=== PATIENT | male | born 1965 | race Hispanic/Latino ===

== ENCOUNTER 2024-11-23 12:48 | Inpatient (IN) | payer BC, OTHER ==
[~2024-11-23] VITALS: Ht 180.3 cm; Wt 106.6 kg
[2024-11-23 13:01] VITALS: TEMP 97.3
[2024-11-23 14:18] LABS: BILIRUBIN,URINE MODERATE (NEGATIVE); CLARITY,URINE TURBID (CLEAR); COLOR,URINE BROWN (YELLOW); GLUCOSE, URINE NEGATIVE (NEGATIVE); KETONES,URINE TRACE (NEGATIVE); LEUKOCYTE ESTERASE ,URINE LARGE (NEGATIVE); NITRITE,URINE POSITIVE (NEGATIVE); PH,URINE 5.5 (5 - 7); PROTEIN,URINE DIPSTICK >=300 (NEGATIVE); URINE UROBILINOGEN 0.2 mg/dL (0.2 - 1)
[2024-11-23 14:32] LABS: BACTERIA,URINE MANY /HPF; EPITHELIAL CELLS,URINE RARE /LPF; WBC,URINE (MAN) >50 /HPF (0-5)
[2024-11-23] MEDS: ONDANSETRON HCL INJ 2MG/ML 2ML 2 MG/ML VIAL IV STA (14:44)
[2024-11-23] MEDS: SODIUM CHLORIDE 0.9% 1000ML 1,000 ML IV ONE ×2 (14:44)
[2024-11-23 14:54] VITALS: PULSE 76; RESP 18
[2024-11-23 14:56] LABS: BASOPHILS # (AUTO) 0.1 (0.0-0.1); BASOPHILS % 0.4 % (0.0-1.0); EOSINOPHILS # (AUTO) 0.1 (0.0-0.4); EOSINOPHILS % 0.6 % (0.0-6.0); HEMATOCRIT 44.6 % (38.2-49.6); HEMOGLOBIN 14.1 g/dL (14.0-18.0); LYMPHOCYTES # (AUTO) 0.5 (1.0-3.2); LYMPHOCYTES % 2.5 % (18.0-39.1); MEAN CORPUSCULAR HEMOGLOBIN 28.8 pg (28-32); MEAN CORPUSCULAR HGB CONC 31.6 g/dL (31-35); MEAN CORPUSCULAR VOLUME 91.2 fL (81-99); NEUTROPHILS # (AUTO) 16.7 (2.1-6.9); NEUTROPHILS % 85.5 % (38.7-80.0); PLATELET COUNT 187 x10e3/uL (140-360); RED BLOOD COUNT 4.89 x10e6/uL (4.3-5.7); RED CELL DISTRIBUTION WIDTH 14.6 % (11.7-14.4); WHITE BLOOD COUNT 19.45 x10e3/uL (4.8-10.8)
[2024-11-23 15:15] LABS: INFLUENZA A AG NEGATIVE (NEGATIVE)
[2024-11-23 15:16] LABS: CORONAVIRUS COVID-19 AG NEGATIVE (NEGATIVE); INFLUENZA B AG NEGATIVE (NEGATIVE)
[2024-11-23 15:23] LABS: ALBUMIN 3.3 g/dL (3.5-5.0); ALBUMIN/GLOBULIN RATIO 0.7 (0.8-2.0); ANION GAP 18.8 mmol/L (8-16); BILIRUBIN,TOTAL 0.7 mg/dL (0.2-1.2); CALCIUM 10.1 mg/dL (8.4-10.2); CREATININE, SERUM 2.4 mg/dL (0.72-1.25); POTASSIUM 3.8 mmol/L (3.5-5.1); TOTAL PROTEIN 7.9 g/dL (6.5-8.1)
[2024-11-23] MEDS ORDERED: SODIUM CHLORIDE FLUSH 10 ML SYR INJ PRN (15:45)
[2024-11-23] MEDS ORDERED: ONDANSETRON HCL INJ 2MG/ML 2ML 2 MG/ML VIAL IV PRN (15:45)
[2024-11-23] MEDS ORDERED: HYDRALAZINE HCL 20 MG/ML VIAL IV PRN (16:15)
[2024-11-23] MEDS ORDERED: ALBUTEROL/IPRATROPIUM 3 ML NEB NEB PRN (16:15)
[2024-11-23] MEDS ORDERED: POTASSIUM CHLORIDE 20 MEQ TAB CR PO PRN (16:15)
[2024-11-23] MEDS ORDERED: DIPHENHYDRAMINE HCL 25 MG CAP PO PRN (16:15)
[2024-11-23] MEDS ORDERED: DOCUSATE SODIUM 100 MG CAP PO PRN (16:15)
[2024-11-23] MEDS ORDERED: SIMETHICONE 80 MG CHEW PO PRN (16:15)
[2024-11-23] MEDS ORDERED: DEXTROSE 50% SYRINGE 50 ML IV PRN (16:15)
[2024-11-23] MEDS ORDERED: LIDOCAINE 4% PATCH TP PRN (16:15)
[2024-11-23 17:59] VITALS: BP 115/80; PULSE 79; RESP 18; TEMP 98.2; O2SAT 100
[2024-11-23] MEDS: ACETAMINOPHEN 325 MG TAB PO PRN (18:04)
[2024-11-23 20:00] VITALS: BP 107/72; PULSE 85; RESP 18; TEMP 98.5; O2SAT 98
[2024-11-23] MEDS: SUMATRIPTAN SUCCINATE 6 MG/0.5 ML VIAL SC ONE (20:49)
[2024-11-23] MEDS ORDERED: MELATONIN 5 MG TABLET PO PRN (21:00)
[2024-11-23] MEDS: MEROPENEM 1 GM in SODIUM CHLORIDE 0.9% 100 ML IV SCH (21:09)
[2024-11-23] MEDS: HYDROCODONE/APAP 5MG-325MG TAB PO PRN (21:10)
[2024-11-23] MEDS: TAMSULOSIN HCL 0.4 MG CAP PO SCH (21:10)
[2024-11-23] MEDS: SODIUM CHLORIDE 0.9% 1000ML 1,000 ML IV SCH (23:23)
[2024-11-24] VITALS (9 sets, daily range): BP systolic 116–165; BP diastolic 67–99; PULSE 88–99; RESP 18–22; TEMP 97.9–101.7; O2SAT 92–98
[2024-11-24 06:46] LABS: BASOPHILS # (AUTO) 0.1 (0.0-0.1); BASOPHILS % 0.5 % (0.0-1.0); EOSINOPHILS # (AUTO) 0.1 (0.0-0.4); EOSINOPHILS % 0.5 % (0.0-6.0); HEMATOCRIT 36.1 % (38.2-49.6); HEMOGLOBIN 12.5 g/dL (14.0-18.0); LYMPHOCYTES # (AUTO) 0.7 (1.0-3.2); LYMPHOCYTES % 5.3 % (18.0-39.1); MEAN CORPUSCULAR HEMOGLOBIN 29.6 pg (28-32); MEAN CORPUSCULAR HGB CONC 34.6 g/dL (31-35); MEAN CORPUSCULAR VOLUME 85.3 fL (81-99); MONOCYTES # (AUTO) 0.7 (0.2-0.8); MONOCYTES % 5.4 % (4.4-11.3); NEUTROPHILS # (AUTO) 10.9 (2.1-6.9); NEUTROPHILS % 83.7 % (38.7-80.0); PLATELET COUNT 186 x10e3/uL (140-360); RED BLOOD COUNT 4.23 x10e6/uL (4.3-5.7); RED CELL DISTRIBUTION WIDTH 14.8 % (11.7-14.4); WHITE BLOOD COUNT 13.03 x10e3/uL (4.8-10.8)
[2024-11-24 07:22] LABS: ALBUMIN 2.7 g/dL (3.5-5.0); ALBUMIN/GLOBULIN RATIO 0.7 (0.8-2.0); ANION GAP 16.5 mmol/L (8-16); BILIRUBIN,TOTAL 0.5 mg/dL (0.2-1.2); CALCIUM 9.1 mg/dL (8.4-10.2); CREATININE, SERUM 1.08 mg/dL (0.72-1.25); POTASSIUM 3.5 mmol/L (3.5-5.1); TOTAL PROTEIN 6.7 g/dL (6.5-8.1)
[2024-11-24] MEDS: PANTOPRAZOLE SOD 40 MG TABEC PO SCH (09:47)
[2024-11-24] MEDS: SUMATRIPTAN SUCCINATE 6 MG/0.5 ML VIAL SC ONE (15:51)
[2024-11-24] MEDS: BENZONATATE 100 MG CAP PO PRN (16:04)
[2024-11-24] MEDS: PHENAZOPYRIDINE HCL 100 MG TAB PO SCH (16:15)
[2024-11-24] MEDS: SODIUM BICARBONATE 650 MG TAB PO SCH (16:15)
[2024-11-24] MEDS: KETOROLAC TROMETHAMINE 30 MG/ML VIAL IV SCH (17:08)
[2024-11-24] MEDS: ACETAMIN/BUTALBITAL/CAFFEINE TAB PO PRN (20:07)
[2024-11-25] VITALS (10 sets, daily range): BP systolic 110–139; BP diastolic 71–98; PULSE 69–98; RESP 18–22; TEMP 97.4–99.3; O2SAT 92–97
[2024-11-25] MEDS: Morphine 2mg Syringe 2 MG/ML SYR IV PRN (05:03)
[2024-11-25 05:19] LABS: BASOPHILS % 0.3 % (0.0-1.0); EOSINOPHILS # (AUTO) 0.1 (0.0-0.4); EOSINOPHILS % 0.6 % (0.0-6.0); HEMATOCRIT 36.4 % (38.2-49.6); HEMOGLOBIN 11.8 g/dL (14.0-18.0); LYMPHOCYTES # (AUTO) 0.8 (1.0-3.2); LYMPHOCYTES % 9.1 % (18.0-39.1); MEAN CORPUSCULAR HEMOGLOBIN 28.9 pg (28-32); MEAN CORPUSCULAR HGB CONC 32.4 g/dL (31-35); MONOCYTES # (AUTO) 0.6 (0.2-0.8); MONOCYTES % 6.6 % (4.4-11.3); NEUTROPHILS # (AUTO) 7.4 (2.1-6.9); NEUTROPHILS % 81.3 % (38.7-80.0); PLATELET COUNT 168 x10e3/uL (140-360); RED BLOOD COUNT 4.09 x10e6/uL (4.3-5.7); RED CELL DISTRIBUTION WIDTH 14.7 % (11.7-14.4); WHITE BLOOD COUNT 9.08 x10e3/uL (4.8-10.8)
[2024-11-25 05:44] LABS: ANION GAP 15.3 mmol/L (8-16); CALCIUM 8.7 mg/dL (8.4-10.2); CREATININE, SERUM 0.83 mg/dL (0.72-1.25)
[2024-11-25 06:02] LABS: POTASSIUM 3.3 mmol/L (3.5-5.1)
[2024-11-25] MEDS: METHYLPREDNISOLONE SOD SUCC 125 MG/2ML VIAL IV ONE (06:07)
[2024-11-25 06:24] LABS: THYROID STIMULATING HORMONE 0.824 uIU/mL (0.350-4.940)
[2024-11-25 06:50] LABS: MAGNESIUM 1.7 MG/DL (1.3-2.1)
[2024-11-25] MEDS ORDERED: PANTOPRAZOLE SOD 40 MG TABEC PO SCH (07:30)
[2024-11-25] MEDS: POTASSIUM CHLORIDE 20 MEQ TAB CR PO ONE (15:00)
[2024-11-26 00:05] VITALS: BP 141/93; PULSE 74; RESP 21; TEMP 98.1; O2SAT 94
[2024-11-26 04:00] VITALS: BP 150/105; PULSE 77; RESP 22; TEMP 97.5; O2SAT 98
[2024-11-26 08:00] VITALS: BP 109/74; PULSE 68; RESP 20; TEMP 97.9; O2SAT 96
[2024-11-26 08:10] VITALS: PULSE 64; RESP 18; O2SAT 94
[2024-11-26 09:00] VITALS: BP 109/74; PULSE 64; RESP 18; TEMP 97.9; O2SAT 94
[2024-11-26 11:40] VITALS: BP 129/92; PULSE 71; RESP 21; TEMP 97.8; O2SAT 98
[2024-11-26 15:23] LABS: ANION GAP 16.7 mmol/L (8-16); CALCIUM 8.9 mg/dL (8.4-10.2); CREATININE, SERUM 0.84 mg/dL (0.72-1.25); POTASSIUM 3.7 mmol/L (3.5-5.1)
[2024-11-26] MEDS ORDERED: ONDANSETRON HCL 4 MG ORAL DISINTEGRATING TAB PO PRN (16:00)
== END 2024-11-26 16:45 | disposition home or self-care (01) | DRG 872 ==
LOC: EDBD 13:23 → ER 13:23 → ERHOLD 15:53 → UNDOADMOB 15:53 → MED/SURG2 17:05
PROVIDERS: ADMIT Internal Medicine; ATTEND Internal Medicine
PROC: 3E0333Z Introduction of Anti-inflammatory into Peripheral Vein, Percutaneous Approach (ICD-10-PCS; principal; 2024-11-23)
DX: A41.51 Sepsis due to Escherichia coli [E. coli] (principal); E87.20 Acidosis, unspecified; N12 Tubulo-interstitial nephritis, not specified as acute or chronic; N17.9 Acute kidney failure, unspecified; E87.1 Hypo-osmolality and hyponatremia; Z16.12 Extended spectrum beta lactamase (ESBL) resistance; N40.1 Benign prostatic hyperplasia with lower urinary tract symptoms; N41.3 Prostatocystitis; R35.0 Frequency of micturition; E86.0 Dehydration; K76.0 Fatty (change of) liver, not elsewhere classified; R53.81 Other malaise; G43.909 Migraine, unspecified, not intractable, without status migrainosus; E66.01 Morbid (severe) obesity due to excess calories; Z11.52 Encounter for screening for COVID-19; Z68.32 Body mass index [BMI] 32.0-32.9, adult
CPT/HCPCS: 36415; 70450; 70551; 71046; 74176; 80048; 80053; 80061; 81001; 83036; 83735; 84443; 84484; 85025; 87040; 87086; 87186; 93005; 94799; 99283; J0696; J1885; J2185; J2270; J2405; J2919; J3030; J7030; J7050

== ENCOUNTER 2025-01-16 22:10 | Inpatient (IN) | payer BC, OTHER ==
[~2025-01-16] VITALS: Ht 177.8 cm; Wt 90.7 kg
[2025-01-16] MEDS ORDERED: ACETAMINOPHEN 325 MG TAB PO STA (22:49)
[2025-01-16 23:07] LABS: BASOPHILS % 0.3 % (0.0-1.0); EOSINOPHILS # (AUTO) 0.2 (0.0-0.4); HEMATOCRIT 41.1 % (38.2-49.6); HEMOGLOBIN 13.9 g/dL (14.0-18.0); LYMPHOCYTES # (AUTO) 3.6 (1.0-3.2); LYMPHOCYTES % 23.4 % (18.0-39.1); MEAN CORPUSCULAR HEMOGLOBIN 28.2 pg (28-32); MEAN CORPUSCULAR HGB CONC 33.8 g/dL (31-35); MEAN CORPUSCULAR VOLUME 83.4 fL (81-99); MONOCYTES % 6.7 % (4.4-11.3); NEUTROPHILS # (AUTO) 10.6 (2.1-6.9); NEUTROPHILS % 68.1 % (38.7-80.0); PLATELET COUNT 213 x10e3/uL (140-360); RED BLOOD COUNT 4.93 x10e6/uL (4.3-5.7); RED CELL DISTRIBUTION WIDTH 15.9 % (11.7-14.4); WHITE BLOOD COUNT 15.46 x10e3/uL (4.8-10.8)
[2025-01-16] MEDS ORDERED: IOPAMIDOL 370 MG/ML 100 ML INFUS..BTL INJ ONE (23:17)
[2025-01-16 23:22] LABS: CORONAVIRUS COVID-19 AG NEGATIVE (NEGATIVE); INFLUENZA A AG NEGATIVE (NEGATIVE); INFLUENZA B AG NEGATIVE (NEGATIVE)
[2025-01-16 23:24] LABS: ALANINE AMINOTRANSFERASE 50 IU/L (0-55); ALBUMIN 4.2 g/dL (3.5-5.0); ALBUMIN/GLOBULIN RATIO 1.1 (0.8-2.0); ALKALINE PHOSPHATASE 139 IU/L (40-150); ANION GAP 17.5 mmol/L (8-16); BILIRUBIN,TOTAL 1.4 mg/dL (0.2-1.2); BLOOD UREA NITROGEN 16 mg/dL (7-26); BUN/CREATININE RATIO 9 (6-25); CARBON DIOXIDE 24 mmol/L (22-29); CHLORIDE 103 mmol/L (98-107); CREATINE KINASE 64 IU/L (30-200); CREATININE, SERUM 1.88 mg/dL (0.72-1.25); EST GLOMERULAR FILTRATION RATE 40 ML/MIN (>=60); GLUCOSE 127 mg/dL (74-118); POTASSIUM 3.5 mmol/L (3.5-5.1); SODIUM 141 mmol/L (136-145)
[2025-01-16] MEDS ORDERED: SODIUM CHLORIDE 0.9% 1000ML 1,000 ML ONE (23:26)
[2025-01-16 23:31] LABS: TROPONIN I < 0.001 ng/mL (0-0.300)
[2025-01-17] VITALS (12 sets, daily range): BP systolic 98–148; BP diastolic 62–90; PULSE 61–82; RESP 18–22; TEMP 97.6–98.4; O2SAT 93–98
[2025-01-17] MEDS: SODIUM CHLORIDE 0.9% 1000ML 1,000 ML IV STA ×3 (00:03→00:04)
[2025-01-17] MEDS: ONDANSETRON HCL INJ 2MG/ML 2ML 2 MG/ML VIAL IV STA (00:03)
[2025-01-17] MEDS: Morphine 4mg INJECTION 4 MG/ML INJ IV STA (00:04)
[2025-01-17] MEDS: SODIUM CHLORIDE 0.9% 1000ML 1,000 ML IV ONE (00:31)
[2025-01-17 01:07] LABS: LIPASE 25434 U/L (8-78)
[2025-01-17] MEDS ORDERED: ONDANSETRON HCL INJ 2MG/ML 2ML 2 MG/ML VIAL IV PRN (01:15)
[2025-01-17] MEDS: PROMETHAZINE 25MG/ NS 50ML (IV) IV PRN (01:39)
[2025-01-17] MEDS: HYDROMORPHONE 1MG/1ML INJ IV PRN (01:41)
[2025-01-17 02:37] LABS: CLARITY,URINE CLEAR (CLEAR); COLOR,URINE YELLOW (YELLOW); LEUKOCYTE ESTERASE ,URINE NEGATIVE (NEGATIVE); NITRITE,URINE NEGATIVE (NEGATIVE); PH,URINE 7 (5 - 7)
[2025-01-17 02:38] LABS: BACTERIA,URINE FEW /HPF; BILIRUBIN,URINE NEGATIVE (NEGATIVE); GLUCOSE, URINE NEGATIVE (NEGATIVE); KETONES,URINE NEGATIVE (NEGATIVE); PROTEIN,URINE DIPSTICK NEGATIVE (NEGATIVE); RBC,URINE 0-5 /HPF (0-5); URINE UROBILINOGEN 0.2 mg/dL (0.2 - 1); WBC,URINE (MAN) 0-5 /HPF (0-5)
[2025-01-17 02:39] LABS: EPITHELIAL CELLS,URINE FEW /LPF
[2025-01-17] MEDS: SODIUM CHLORIDE 0.9% 1000ML 1,000 ML IV SCH (03:14)
[2025-01-17] MEDS ORDERED: DEXTROSE 50% SYRINGE 50 ML IV PRN (07:15)
[2025-01-17] MEDS: INSULIN REGULAR, HUMAN 100 UNIT/1 ML SQ SCH (07:30)
[2025-01-17 08:53] LABS: CREATINE KINASE 44 IU/L (30-200)
[2025-01-17 08:55] LABS: CHOL/HDL RATIO 5.7 (3.9-4.7)
[2025-01-17 09:01] LABS: TROPONIN I < 0.001 ng/mL (0-0.300)
[2025-01-17 16:40] LABS: CREATINE KINASE 37 IU/L (30-200)
[2025-01-17 16:47] LABS: TROPONIN I < 0.001 ng/mL (0-0.300)
[2025-01-18] VITALS (9 sets, daily range): BP systolic 135–159; BP diastolic 65–97; PULSE 70–88; RESP 16–20; TEMP 98.2–98.9; O2SAT 93–99
[2025-01-18] MEDS: LACTATED RINGER'S 1,000 ML INJ SCH (00:11)
[2025-01-18 05:09] LABS: BASOPHILS % 0.3 % (0.0-1.0); EOSINOPHILS # (AUTO) 0.3 (0.0-0.4); EOSINOPHILS % 2.6 % (0.0-6.0); HEMATOCRIT 39.8 % (38.2-49.6); HEMOGLOBIN 13.3 g/dL (14.0-18.0); LYMPHOCYTES # (AUTO) 1.1 (1.0-3.2); LYMPHOCYTES % 10.5 % (18.0-39.1); MEAN CORPUSCULAR HGB CONC 33.4 g/dL (31-35); MEAN CORPUSCULAR VOLUME 86.7 fL (81-99); MONOCYTES # (AUTO) 0.6 (0.2-0.8); MONOCYTES % 5.8 % (4.4-11.3); NEUTROPHILS # (AUTO) 8.6 (2.1-6.9); NEUTROPHILS % 80.6 % (38.7-80.0); PLATELET COUNT 176 x10e3/uL (140-360); RED BLOOD COUNT 4.59 x10e6/uL (4.3-5.7); RED CELL DISTRIBUTION WIDTH 16.4 % (11.7-14.4); WHITE BLOOD COUNT 10.62 x10e3/uL (4.8-10.8)
[2025-01-18 05:51] LABS: ALBUMIN 3.6 g/dL (3.5-5.0); ALBUMIN/GLOBULIN RATIO 1.1 (0.8-2.0); ANION GAP 15.4 mmol/L (8-16); BILIRUBIN,TOTAL 1.1 mg/dL (0.2-1.2); CALCIUM 8.7 mg/dL (8.4-10.2); CREATININE, SERUM 0.98 mg/dL (0.72-1.25); POTASSIUM 3.4 mmol/L (3.5-5.1)
[2025-01-18] MEDS: ACETAMINOPHEN/CODEINE 300MG - 30MG TAB PO PRN (16:53)
[2025-01-19] VITALS (7 sets, daily range): BP systolic 119–138; BP diastolic 77–91; PULSE 73–81; RESP 18–20; TEMP 98.2–98.9; O2SAT 95–98
[2025-01-19 06:42] LABS: BASOPHILS % 0.2 % (0.0-1.0); EOSINOPHILS # (AUTO) 0.4 (0.0-0.4); HEMATOCRIT 35.3 % (38.2-49.6); HEMOGLOBIN 11.9 g/dL (14.0-18.0); LYMPHOCYTES # (AUTO) 1.3 (1.0-3.2); LYMPHOCYTES % 12.3 % (18.0-39.1); MEAN CORPUSCULAR HEMOGLOBIN 28.5 pg (28-32); MEAN CORPUSCULAR HGB CONC 33.7 g/dL (31-35); MEAN CORPUSCULAR VOLUME 84.4 fL (81-99); MONOCYTES # (AUTO) 0.8 (0.2-0.8); MONOCYTES % 7.3 % (4.4-11.3); NEUTROPHILS # (AUTO) 8.2 (2.1-6.9); NEUTROPHILS % 75.8 % (38.7-80.0); PLATELET COUNT 145 x10e3/uL (140-360); RED BLOOD COUNT 4.18 x10e6/uL (4.3-5.7); RED CELL DISTRIBUTION WIDTH 16.1 % (11.7-14.4); WHITE BLOOD COUNT 10.83 x10e3/uL (4.8-10.8)
[2025-01-19 07:13] LABS: ANION GAP 13.6 mmol/L (8-16); CALCIUM 8.7 mg/dL (8.4-10.2); CREATININE, SERUM 0.82 mg/dL (0.72-1.25); POTASSIUM 3.6 mmol/L (3.5-5.1)
[2025-01-19] MEDS: METOPROLOL TARTRATE 25 MG TAB PO SCH (09:52)
[2025-01-20] VITALS (9 sets, daily range): BP systolic 109–135; BP diastolic 79–92; PULSE 69–89; RESP 18–20; TEMP 98–100.3; O2SAT 9–100
[2025-01-20] MEDS: SODIUM CHLORIDE 0.45% 1,000 ML IV SCH (06:30)
[2025-01-20] MEDS: ACETAMINOPHEN 325 MG TAB PO PRN (16:59)
[2025-01-21] VITALS (7 sets, daily range): BP systolic 132–144; BP diastolic 78–89; PULSE 70–84; RESP 16–20; TEMP 97.9–99.1; O2SAT 95–98
[2025-01-21 05:10] LABS: BASOPHILS % 0.2 % (0.0-1.0); EOSINOPHILS # (AUTO) 0.4 (0.0-0.4); EOSINOPHILS % 3.3 % (0.0-6.0); HEMOGLOBIN 11.1 g/dL (14.0-18.0); LYMPHOCYTES # (AUTO) 1.1 (1.0-3.2); LYMPHOCYTES % 10.1 % (18.0-39.1); MEAN CORPUSCULAR HEMOGLOBIN 28.2 pg (28-32); MEAN CORPUSCULAR HGB CONC 34.7 g/dL (31-35); MEAN CORPUSCULAR VOLUME 81.2 fL (81-99); MONOCYTES # (AUTO) 0.7 (0.2-0.8); MONOCYTES % 6.6 % (4.4-11.3); NEUTROPHILS # (AUTO) 8.9 (2.1-6.9); NEUTROPHILS % 79.4 % (38.7-80.0); PLATELET COUNT 142 x10e3/uL (140-360); RED BLOOD COUNT 3.94 x10e6/uL (4.3-5.7); RED CELL DISTRIBUTION WIDTH 15.3 % (11.7-14.4); WHITE BLOOD COUNT 11.24 x10e3/uL (4.8-10.8)
[2025-01-21] MEDS ORDERED: LOPRESSOR25 MG PO (05:20)
[2025-01-21] MEDS ORDERED: ACETAMINOPHEN325 M1 PO (05:20)
[2025-01-21] MEDS ORDERED: CEPHALEXIN500 MG PO (05:20)
[2025-01-21] MEDS ORDERED: ULTRAM 50MG50 MG PO (05:20)
[2025-01-21] MEDS ORDERED: SENOKOT8.6 MG PO (05:20)
[2025-01-21] MEDS: HYDROMORPHONE 2MG/ML IV PRN (18:23)
[2025-01-22] VITALS (7 sets, daily range): BP systolic 123–137; BP diastolic 80–90; PULSE 75–84; RESP 16–20; TEMP 98.4–99.3; O2SAT 93–99
[2025-01-22 05:28] LABS: BASOPHILS # (AUTO) 0.1 (0.0-0.1); BASOPHILS % 0.4 % (0.0-1.0); EOSINOPHILS # (AUTO) 0.3 (0.0-0.4); HEMATOCRIT 33.5 % (38.2-49.6); HEMOGLOBIN 11.6 g/dL (14.0-18.0); LYMPHOCYTES % 7.5 % (18.0-39.1); MEAN CORPUSCULAR HEMOGLOBIN 28.5 pg (28-32); MEAN CORPUSCULAR HGB CONC 34.6 g/dL (31-35); MEAN CORPUSCULAR VOLUME 82.3 fL (81-99); MONOCYTES # (AUTO) 1.1 (0.2-0.8); NEUTROPHILS # (AUTO) 11.2 (2.1-6.9); NEUTROPHILS % 81.4 % (38.7-80.0); PLATELET COUNT 160 x10e3/uL (140-360); RED BLOOD COUNT 4.07 x10e6/uL (4.3-5.7); RED CELL DISTRIBUTION WIDTH 15.2 % (11.7-14.4); WHITE BLOOD COUNT 13.77 x10e3/uL (4.8-10.8)
[2025-01-22 05:58] LABS: ANION GAP 16.8 mmol/L (8-16); CALCIUM 8.4 mg/dL (8.4-10.2); CREATININE, SERUM 0.72 mg/dL (0.72-1.25)
[2025-01-22 06:01] LABS: POTASSIUM 2.8 mmol/L (3.5-5.1)
[2025-01-22] MEDS ORDERED: PROMETHAZINE 12.5MG/ NACL 0.9% 12.5 MG/50 ML BAG IV PRN (07:30)
[2025-01-22] MEDS: POTASSIUM CHLORIDE 20MEQ/100ML 100 ML IV ONE (08:55)
[2025-01-22] MEDS: POTASSIUM CHLORIDE 20 MEQ TAB CR PO ONE (08:55)
[2025-01-22] MEDS: ONDANSETRON HCL INJ 2MG/ML 2ML 2 MG/ML VIAL IV PRN (15:18)
[2025-01-23] VITALS: BP 135/74; PULSE 73; RESP 19; TEMP 98.2; O2SAT 95
[2025-01-23 05:11] LABS: BASOPHILS % 0.2 % (0.0-1.0); EOSINOPHILS # (AUTO) 0.3 (0.0-0.4); EOSINOPHILS % 2.2 % (0.0-6.0); HEMATOCRIT 31.6 % (38.2-49.6); LYMPHOCYTES # (AUTO) 1.1 (1.0-3.2); LYMPHOCYTES % 8.4 % (18.0-39.1); MEAN CORPUSCULAR HGB CONC 34.8 g/dL (31-35); MEAN CORPUSCULAR VOLUME 80.4 fL (81-99); MONOCYTES % 7.3 % (4.4-11.3); NEUTROPHILS # (AUTO) 10.9 (2.1-6.9); NEUTROPHILS % 81.1 % (38.7-80.0); PLATELET COUNT 180 x10e3/uL (140-360); RED BLOOD COUNT 3.93 x10e6/uL (4.3-5.7); RED CELL DISTRIBUTION WIDTH 15.3 % (11.7-14.4); WHITE BLOOD COUNT 13.47 x10e3/uL (4.8-10.8)
[2025-01-23 05:13] VITALS: BP 134/71; PULSE 78; RESP 20; TEMP 98.2; O2SAT 92
[2025-01-23 05:38] LABS: CALCIUM 8.5 mg/dL (8.4-10.2); CREATININE, SERUM 0.72 mg/dL (0.72-1.25)
[2025-01-23 08:50] VITALS: BP 134/71; PULSE 78; RESP 20; TEMP 98.2; O2SAT 92
[2025-01-23] MEDS: POTASSIUM CHLORIDE 20 MEQ TAB CR PO ONE (09:03)
[2025-01-23 09:04] VITALS: BP 140/86; PULSE 80; TEMP 98.9; O2SAT 97
== END 2025-01-23 11:37 | disposition home or self-care (01) | DRG 871 ==
LOC: ER 22:18 → ERHOLD 01-17 01:04 → MED/SURG 01-17 02:37
PROVIDERS: ADMIT Internal Medicine; ATTEND Internal Medicine
PROC: 3E0333Z Introduction of Anti-inflammatory into Peripheral Vein, Percutaneous Approach (ICD-10-PCS; principal; 2025-01-17)
PROC: 06HY33Z Insertion of Infusion Device into Lower Vein, Percutaneous Approach (ICD-10-PCS; 2025-01-17)
DX: A41.9 Sepsis, unspecified organism (principal); J18.9 Pneumonia, unspecified organism; K85.90 Acute pancreatitis without necrosis or infection, unspecified; R57.1 Hypovolemic shock; N17.9 Acute kidney failure, unspecified; E11.22 Type 2 diabetes mellitus with diabetic chronic kidney disease; E86.0 Dehydration; N18.9 Chronic kidney disease, unspecified; E87.6 Hypokalemia; R53.81 Other malaise; Z11.52 Encounter for screening for COVID-19; R11.2 Nausea with vomiting, unspecified; K76.0 Fatty (change of) liver, not elsewhere classified; K82.8 Other specified diseases of gallbladder; N40.0 Benign prostatic hyperplasia without lower urinary tract symptoms; M19.90 Unspecified osteoarthritis, unspecified site
CPT/HCPCS: 36415; 71275; 72100; 74174; 76705; 80048; 80053; 80061; 81001; 82550; 82948; 83036; 83605; 83690; 84484; 85025; 86301; 87040; 87086; 93005; 94799; 99285; J1171; J2270; J2405; J2543; J2550; J3480; J7030; Q9967